=== PATIENT | male | born 1985 | race Caucasian/White ===

== ENCOUNTER 2020-12-22 12:45 | Emergency (ER) | payer OTHER ==
[~2020-12-22] VITALS: Ht 172.7 cm; Wt 90.0 kg
[~2020-12-22 12:45] MED LIST: LORTAB 5 OR
[2020-12-22] MEDS ORDERED: KEFLEX500 MG PO (14:08)
[2020-12-22 14:18] VITALS: BP 132/77
== END 2020-12-22 14:25 | disposition home or self-care (01) | DRG 605 ==
LOC: ED 12:45
DX: S51.832A Puncture wound without foreign body of left forearm, initial encounter (principal); W20.8XXA Other cause of strike by thrown, projected or falling object, initial encounter; Y93.89 Activity, other specified; Y92.89 Other specified places as the place of occurrence of the external cause; Y99.0 Civilian activity done for income or pay